=== PATIENT | male | born 1980 | race Native Hawaiian/Other Pacific Islander ===

== ENCOUNTER 2016-09-01 14:26 | Emergency (ER) | payer OTHER ==
[~2016-09-01] VITALS: Ht 165.1 cm; Wt 62.1 kg
[2016-09-01 14:30] VITALS: BP 121/72; TEMP 98.2
== END 2016-09-01 16:52 | disposition home or self-care (01) ==
LOC: ED 14:26
DX: M94.0 Chondrocostal junction syndrome [Tietze] (principal); K21.9 Gastro-esophageal reflux disease without esophagitis; R07.89 Other chest pain
CPT/HCPCS: 96372; 99281; J1885

== ENCOUNTER 2017-10-01 07:02 | Emergency (ER) | payer OTHER ==
[~2017-10-01] VITALS: Ht 165.1 cm; Wt 65.8 kg
[2017-10-01 09:29] VITALS: TEMP 97.2
[2017-10-01 11:40] VITALS: BP 116/61
== END 2017-10-01 11:58 | disposition short-term general hospital (02) ==
LOC: ED 07:02
DX: S02.32XA Fracture of orbital floor, left side, initial encounter for closed fracture (principal); S02.19XA Other fracture of base of skull, initial encounter for closed fracture; Y04.0XXA Assault by unarmed brawl or fight, initial encounter; Y92.149 Unspecified place in prison as the place of occurrence of the external cause
CPT/HCPCS: 96365; 96375; 96376; 99284; J1170; J2405; J2930; J3490

== ENCOUNTER 2017-10-01 11:57 | Outpatient (CLI) | payer OTHER | END 2017-10-01 13:20 | disposition short-term general hospital (02) | LOC: AMB 11:57 | DX: S02.32XA Fracture of orbital floor, left side, initial encounter for closed fracture (principal); S02.19XA Other fracture of base of skull, initial encounter for closed fracture | CPT/HCPCS: A0425; A0427 ==

== ENCOUNTER 2020-03-05 13:58 | Emergency (ER) | payer OTHER ==
[~2020-03-05] VITALS: Ht 165.1 cm; Wt 65.8 kg
[2020-03-05 16:45] LABS: PLATELET COUNT 224 K/uL (142-355)
[2020-03-05 16:48] LABS: POTASSIUM 3.9 mmol/L (3.6-5.2)
[2020-03-05 18:56] VITALS: BP 103/60; TEMP 98.6
== END 2020-03-05 18:56 | disposition home or self-care (01) ==
LOC: ED 13:58
PROVIDERS: Emergency Medicine
DX: N45.3 Epididymo-orchitis (principal)
CPT/HCPCS: 36415; 80053; 81000; 85027; 87088; 96372; 96374; 99284; J1885